=== PATIENT | male | born 1990 | race Two or more races ===

== ENCOUNTER 2018-05-06 08:10 | Emergency (ER) | payer MEDICAID ==
[~2018-05-06] VITALS: Ht 180.3 cm; Wt 87.0 kg
[2018-05-06 08:17] VITALS: BP 132/68
== END 2018-05-06 09:27 | disposition home or self-care (01) ==
LOC: ER 08:40
DX: K08.89 Other specified disorders of teeth and supporting structures (principal)
CPT/HCPCS: 99283